=== PATIENT | male | born 1970 | race Caucasian/White ===

== ENCOUNTER 2019-10-04 16:37 | Observation (INO) | payer MEDICARE ==
[~2019-10-04] VITALS: Ht 167.6 cm; Wt 65.8 kg
[~2019-10-04 16:37] MED LIST: ARIP15 PO; ATOM40 PO; BUPR150ER PO; CLON.5 PO; DIPH50 PO; DULO60 PO; FLUO10; FLUO10 PO; FLUO20 PO; FOLI1 PO; HYDACE5 PO; MAGOXI400 PO; PROP60 PO; THIA100 PO; TOBDEXOPSU OP
[2019-10-04 17:23] LABS: Source, Urine Clean Catch
[2019-10-04 17:41] LABS: BASOPHILS ABSOLUTE AUTO 0.07 K/mm3 (0.00-0.23); BASOPHILS PERCENT AUTO 1 % (0-2); EOSINOPHILS ABSOLUTE AUTO 0.07 K/mm3 (0.00-0.68); EOSINOPHILS PERCENT AUTO 1 % (0-6); Hematocrit 50.1 % (37.0-53.0); Hemoglobin 16.9 g/dL (13.5-17.5); IMMATURE GRAN ABSOLUTE AUTO 0.04 K/mm3 (0.00-0.10); IMMATURE GRAN PERCENT AUTO 1 % (0-1); LYMPHOCYTES ABSOLUTE AUTO 0.95 K/mm3 (0.84-5.20); LYMPHOCYTES PERCENT AUTO 12 % (21-46); MONOCYTES ABSOLUTE AUTO 0.74 K/mm3 (0.16-1.47); MONOCYTES PERCENT AUTO 9 % (4-13); Mean Corpuscular HGB 31.8 pg (26.0-34.0); Mean Corpuscular HGB Conc 33.7 g/dL (31.5-36.5); Mean Corpuscular Volume 94 fL (80-100); Mean Platelet Volume 8.9 fL (9.1-12.4); NEUTROPHILS ABSOLUTE AUTO 5.97 K/mm3 (1.96-9.15); NEUTROPHILS PERCENT AUTO 76 % (41-73); Platelet Count 238 K/mm3 (150-400); RDW Coefficient Variation 11.8 % (11.7-14.2); RDW Standard Deviation 41.1 fL (35.1-46.3); Red Blood Cell Count 5.31 M/mm3 (4.30-5.90); White Blood Cell Count 7.84 K/mm3 (4.00-11.30)
[2019-10-04 17:44] LABS: Appearance, Urine Clear (Clear); Color, Urine Yellow (P-Yellow); Leukocyte Esterase, Urine Neg (Neg); Specific Gravity, Urine 1.015 (1.003-1.022)
[2019-10-04 17:45] LABS: Bilirubin, Urine Neg (Neg); Glucose Qualitative, Urine Neg (Neg); Ketones, Urine Neg (Neg); Nitrite, Urine Neg (Neg); Protein, Urine Neg (Neg); Urobilinogen, Urine NORM (Normal)
[2019-10-04] MEDS ORDERED: OLAN10 PO (17:49)
[2019-10-04 18:00] LABS: Ethanol (Alcohol), Blood, Med 76 mg/dL; Salicylate 3.8 mg/dL (2.8-20.0)
[2019-10-04 18:03] LABS: U Amphetamine Screen DETECTED; U Barbituate Screen Not Detected; U Benzodiazapine Screen Not Detected; U Buprenorphine Screen Not Detected; U Cannabinoids Screen DETECTED; U Cocaine Screen Not Detected; U Methadone Screen Not Detected; U Methamphetamine Screen Not Detected; U Opiates Screen Not Detected; U Oxycodone Screen Not Detected; U Phencyclidine Screen Not Detected; U Propoxyphene Screen Not Detected
[2019-10-04 18:09] LABS: Alanine Aminotransfer (ALT/SGP 28 U/L (12-78); Albumin, Blood 3.7 g/dL (3.4-5.0); Albumin/Globulin Ratio 1.1 (0.8-1.8); Alk Phos 107 U/L (50-136); Anion Gap 8 mmol/L (6-16); Aspartate Aminotrans (AST/SGOT 17 U/L (12-37); Bilirubin, Total 0.3 mg/dL (0.1-1.0); Blood Urea Nitrogen 13 mg/dL (8-24); Bun/Creatinine Ratio 12.9 (12.0-20.0); CO2, Blood 24 mmol/L (21-32); Calcium, Blood 9.5 mg/dL (8.5-10.1); Chloride, Blood 107 mmol/L (98-108); Creatinine, Blood 1.01 mg/dL (0.60-1.20); Globulin, Blood 3.5 g/dL (2.2-4.0); Glomerular Filtration Rate >60 (60-); Glucose, Blood 102 mg/dL (70-99); Potassium, Blood 3.6 mmol/L (3.5-5.5); Sodium, Blood 139 mmol/L (136-145); Total Protein, Blood 7.2 g/dL (6.4-8.2)
[2019-10-04 18:10] LABS: Acetaminophen, Random <2.0 ug/mL (10.0-30.0)
[2019-10-04 18:13] LABS: Bacteria Mod /hpf; Blood, Urine 1+ (Neg); Squamous Epithelial Cells Few /hpf (Few)
== END 2019-10-05 10:11 | disposition home or self-care (01) ==
LOC: ER 16:37 → EOR 17:31
PROVIDERS: Physician Assistant; ADMIT Emergency Medicine
DX: F32.9 Major depressive disorder, single episode, unspecified (principal); F15.11 Other stimulant abuse, in remission; Z79.899 Other long term (current) drug therapy; Z87.891 Personal history of nicotine dependence; F19.10 Other psychoactive substance abuse, uncomplicated; Z72.89 Other problems related to lifestyle
CPT/HCPCS: 36415; 80053; 81001; 84443; 85025; 87086; 99285; G0378; G0480

== ENCOUNTER 2020-05-12 18:31 | Emergency (ER) | payer MEDICARE ==
[~2020-05-12] VITALS: Ht 167.6 cm; Wt 81.7 kg
[~2020-05-12 18:31] MED LIST changes: +OLAN10 PO
[2020-05-12] MEDS ORDERED: ATOR20 (18:35)
[2020-05-12] MEDS ORDERED: AMOCLA875 PO (20:02)
== END 2020-05-12 20:18 | disposition home or self-care (01) ==
LOC: ER 18:31
DX: K04.7 Periapical abscess without sinus (principal); Z79.899 Other long term (current) drug therapy; Z87.891 Personal history of nicotine dependence
CPT/HCPCS: 64400; 99282-25; A9270

== ENCOUNTER → 2022-04-11 | Outpatient (CLI) | payer MEDICARE ==
[~2022-04-11] MED LIST changes: +AMOCLA875 PO; +ATOR20
[2022-04-16 13:40] LABS: Stool Occult Bld Immuno 1 Negative (NEGATIVE)
== END | disposition home or self-care (01) ==
LOC: LAB SHORT 12:00 → LAB 12:00
PROVIDERS: Family Medicine
DX: Z12.11 Encounter for screening for malignant neoplasm of colon (principal)
CPT/HCPCS: G0328